=== PATIENT | female | born 1965 | race African-American/Black ===

== ENCOUNTER → 2018-08-27 | Outpatient (CLI) | payer OTHER ==
--- NOTE | 2018-08-27 10:31 | RAD ---
3 views of the lumbar spine 08/27/2018 INDICATION: Low back pain COMPARISON STUDY: None Discussion: Minimal S-shaped curvature of the thoracolumbar spine is noted. No evidence of acute fracture or alignment abnormality is identified. Vertebral body heights are preserved. Disc spaces are relatively preserved. Minimal degenerative changes of endplates and minimal facet arthrosis is seen at L3-4 through S1. No acute soft tissue changes are identified. IMPRESSION: Minimal S-shaped curvature of the thoracolumbar spine and minimal osseous degenerative change of the lumbar spine as described. No acute osseous and normalities are identified. Electronically signed by: Graham Quiroga MD (08/27/2018 10:27 AM) [id number]
== END | disposition home or self-care (01) ==
LOC: RAD 08:54
PROVIDERS: ATTEND Internal Medicine
DX: M47.897 Other spondylosis, lumbosacral region (principal); M43.8X5 Other specified deforming dorsopathies, thoracolumbar region
CPT/HCPCS: 72100